=== PATIENT | male | born 1990 | race African-American/Black ===

== ENCOUNTER 2017-03-22 10:55 | Emergency (ER) | payer OTHER ==
[~2017-03-22] VITALS: Ht 188 cm; Wt 113.4 kg
[~2017-03-22 10:55] MED LIST: ZITHROMAX TRI-500 MG PO
== END 2017-03-22 17:00 | disposition home or self-care (01) ==
LOC: ER 10:55
DX: K52.9 Noninfective gastroenteritis and colitis, unspecified (principal)

== ENCOUNTER 2017-04-27 08:13 | Emergency (ER) | payer OTHER ==
[~2017-04-27] VITALS: Ht 188 cm; Wt 106.6 kg
== END 2017-04-27 12:04 | disposition home or self-care (01) ==
LOC: ER 08:13
DX: S93.401A Sprain of unspecified ligament of right ankle, initial encounter (principal); X50.3XXA Overexertion from repetitive movements, initial encounter; Y93.67 Activity, basketball; Y92.89 Other specified places as the place of occurrence of the external cause; Y99.8 Other external cause status

== ENCOUNTER 2019-10-26 15:15 | Outpatient (CLI) | payer OTHER | END 2019-10-26 16:00 | disposition home or self-care (01) | LOC: OFIC 805 15:15 | PROVIDERS: ATTEND Otolaryngology | DX: N62 Hypertrophy of breast (principal); G47.33 Obstructive sleep apnea (adult) (pediatric); H90.3 Sensorineural hearing loss, bilateral; R09.81 Nasal congestion ==

== ENCOUNTER 2019-11-11 08:36 | Outpatient (CLI) | payer OTHER | END 2019-11-11 12:39 | disposition home or self-care (01) | LOC: LAB 08:36 | PROVIDERS: ATTEND Internal Medicine Cardiovascular Disease | DX: E11.9 Type 2 diabetes mellitus without complications (principal); I10 Essential (primary) hypertension; E03.8 Other specified hypothyroidism; E78.2 Mixed hyperlipidemia; N40.0 Benign prostatic hyperplasia without lower urinary tract symptoms; E55.9 Vitamin D deficiency, unspecified; J44.9 Chronic obstructive pulmonary disease, unspecified ==

== ENCOUNTER 2019-12-28 14:14 | Outpatient (CLI) | payer OTHER | END 2019-12-28 15:20 | disposition home or self-care (01) | LOC: OFIC 805 14:14 | PROVIDERS: ATTEND Otolaryngology | DX: R09.81 Nasal congestion (principal); J35.2 Hypertrophy of adenoids; G47.33 Obstructive sleep apnea (adult) (pediatric); H90.0 Conductive hearing loss, bilateral ==

== ENCOUNTER 2020-01-22 07:00 | Day surgery (SDC) | payer OTHER ==
[~2020-01-22 07:00] MED LIST changes: +ADERAL
[2020-01-22] MEDS ORDERED: CIPRODEX OTIC7.5 ML OT (20:16)
== END 2020-01-22 13:00 | disposition home or self-care (01) ==
LOC: CIR.AMB 07:00
PROVIDERS: ATTEND Otolaryngology
DX: H90.0 Conductive hearing loss, bilateral (principal); J35.2 Hypertrophy of adenoids; Z20.828 Contact with and (suspected) exposure to other viral communicable diseases

== ENCOUNTER 2020-03-21 11:36 | Emergency (ER) | payer OTHER ==
[~2020-03-21] VITALS: Ht 188 cm; Wt 108.9 kg
[~2020-03-21 11:36] MED LIST changes: +CIPRODEX OTIC7.5 ML OT
== END 2020-03-21 16:26 | disposition home or self-care (01) ==
LOC: ER 11:36
DX: J02.8 Acute pharyngitis due to other specified organisms (principal); Z03.818 Encounter for observation for suspected exposure to other biological agents ruled out

== ENCOUNTER 2020-04-24 13:27 | Outpatient (CLI) | payer OTHER | END 2020-04-24 14:49 | disposition home or self-care (01) | LOC: OFIC 805 13:27 | PROVIDERS: ATTEND Otolaryngology | DX: H74.8X3 Other specified disorders of middle ear and mastoid, bilateral (principal); H90.0 Conductive hearing loss, bilateral; R09.81 Nasal congestion ==

== ENCOUNTER 2020-05-13 13:28 | Outpatient (CLI) | payer OTHER | END 2020-05-13 16:19 | disposition home or self-care (01) | LOC: OFIC 805 13:28 | PROVIDERS: ATTEND Otolaryngology | DX: H74.8X3 Other specified disorders of middle ear and mastoid, bilateral (principal); H90.0 Conductive hearing loss, bilateral; R09.81 Nasal congestion; J03.80 Acute tonsillitis due to other specified organisms ==

== ENCOUNTER 2021-09-15 09:05 | Emergency (ER) | payer OTHER ==
[~2021-09-15] VITALS: Ht 188 cm; Wt 118.4 kg
[2021-09-15] MEDS ORDERED: ADDERALL 15 MG15 MG PO (09:55)
[2021-09-15] MEDS ORDERED: LAMICTAL200 M1 PO (09:55)
== END 2021-09-15 14:53 | disposition home or self-care (01) ==
LOC: ER 09:05
DX: B34.9 Viral infection, unspecified (principal)